=== PATIENT | female | born 1960 | race Caucasian/White ===

== ENCOUNTER 2019-10-14 08:49 | Outpatient (RCR) | payer MEDICARE, MEDICAID, SELFPAY | END 2019-10-26 00:01 | LOC: WOUND 08:49 | PROVIDERS: Family Provider Family Medicine; Visit Provider Nurse Practitioner Family | DX: I96 Gangrene, not elsewhere classified (principal); L89.154 Pressure ulcer of sacral region, stage 4 | CPT/HCPCS: 11042 ×3 ==